=== PATIENT | male | born 1935 | race Caucasian/White ===

== ENCOUNTER 2016-09-17 08:59 | Emergency (ER) | payer OTHER ==
[2016-09-17] MEDS ORDERED: IPRATROPIUM/ALBUTEROL SULFATE 3 ML AMPUL.NEB NEB ONE (09:14)
[2016-09-17] MEDS: IPRATROPIUM/ALBUTEROL SULFATE 3 ML AMPUL.NEB NEB ONE (09:24)
[2016-09-17 09:28] LABS: ABG BASE EXCESS 2.8 (-2 - +2); ABG PH 7.44 (7.35-7.45)
[2016-09-17 09:32] LABS: BASOPHILS % 0.2 (0.0-1.5); EOSINOPHILS % 1.6 % (0.0-6.8); LYMPHOCYTES # 0.7 # k/uL (0.6-4.0); MEAN CORPUSCULAR HEMOGLOBIN 32.3 pg (28.0-34.0); MONOCYTES # 0.2 # k/uL (0.0-0.9); MONOCYTES % 3.5 % (0.0-11.0); NEUTROPHILS # 5.2 # k/uL (1.4-7.7)
[2016-09-17 09:47] LABS: eGFR (African) > 60; eGFR (Non-African) > 60
--- NOTE | 2016-09-17 10:01 | ED Physician Documentation ---
General Adult - HISTORIAN Historian: patient, spouse - HPI Stated Complaint: Shortness of breath Chief Complaint: General Adult Onset: days ago (1) Timing: still present Severity: moderate Further Comments: yes (Pt is a 80 yo lung cancer pt with sob that has been worsening since yesterday. No fever. No chest pain. Pt becomes acutely sob with minimal exertion. Pt indergoes weekly therapy at [facility] - ROS CONST: no problems EYES/ENT: none CVS/RESP: shortness of breath GI/: none MS/SKIN/LYMPH: none - PAST HX Past History: other (lung cancer, L lobe; hypothyroidism; HLD; COPD) Allergies/Adverse Reactions: Allergies Allergy/AdvReac Type Severity Reaction Status Date / Time No Known Allergies Allergy Verified 09/17/16 09:25 Home Medications: Ambulatory Orders Medication Instructions Recorded Atorvastatin Calcium [Lipitor] 80 mg PO HS 09/17/16 Levothyroxine Sodium [Synthroid] 75 mg PO DAILY 09/17/16 Oxycodone HCl [Oxycodone HCl] 10 mg PO Q6 PRN 09/17/16 - SOCIAL HX Smoking History: quit greater than 1 year - FAMILY HX Family History: No - VITAL SIGNS Vital Signs: Vital Signs Temp Pulse Resp BP Pulse Ox 98.1 F 64 28 H 169/75 69 L 09/17/16 09:15 09/17/16 09:15 09/17/16 09:15 09/17/16 09:15 09/17/16 09:15 - REVIEWED ASSESSMENTS Nursing Assessment Reviewed: Yes Vitals Reviewed: Yes Progress - Progress Progress: CXR: 1. Opacified left hemithorax. Differential includes pneumonectomy and complete lung collapse. 2. Mild right basilar reticular opacity may represent atelectasis, edema, or bronchitis. Duoneb HFN x 1 Pt is stable: HR 86; R 18; SpO2 92% nrb. Transfer to [facility] Rutherford. - EKG/XRAY/CT EKG: NSR (HR=70; OR interval normal; normal axis.) ED Results Lab/Radiology - Lab Results Lab Results: Lab Results 09/17/16 09/17/16 09/17/16 09:25 09:25 09:25 WBC 6.20 K/ul K/ul (4.00-12.00) RBC 3.00 M/ul L M/ul (3.90-5.20) Hgb 9.7 g/dL L g/dL (12.0-18.0) Hct 29.9 % L % (37.0-53.0) MCV 100.0 fl fl (80.0-100.0) MCH 32.3 pg pg (28.0-34.0) MCHC 32.3 g/dL g/dL (30.0-36.0) RDW 12.9 % % (11.3-14.3) Plt Count 280 K/mm3 K/mm3 (130-400) Neut % (Auto) 83.1 % H % (39.0-79.0) Lymph % (Auto) 10.6 % L % (16.0-50.0) Dodge % (Auto) 3.5 % % (0.0-11.0) Eos % (Auto) 1.6 % % (0.0-6.8) Baso % (Auto) 0.2 (0.0-1.5) Neut # 5.2 # k/uL # k/uL (1.4-7.7) Lymph # 0.7 # k/uL # k/uL (0.6-4.0) Dodge # 0.2 # k/uL # k/uL (0.0-0.9) Eos # 0.1 # k/uL # k/uL (0.0-0.6) Baso # 0.0 # k/uL # k/uL (0.0-0.5) Reactive Lymphs % 1.0 % % (0.0-5.0) Reactive Lymphs # 0.1 # k/uL # k/uL (0.0-0.8) pH pCO2 pO2 HCO3 ABG O2 Sat Calc/Riky ABG Base Excess Sodium 138 mmol/L mmol/L (136-145) Potassium 3.5 mmol/L mmol/L (3.5-5.0) Chloride 103 mmol/L mmol/L (98-110) Carbon Dioxide 28 mmol/L mmol/L (20-32) BUN 13 mg/dL mg/dL (10-26) Creatinine 0.7 mg/dL mg/dL (0.4-1.5) Estimated Creat Clear 61 Est GFR ( Amer) > 60 (60 - ) Est GFR (Non-Af Amer) > 60 (60 - ) Glucose 152 mg/dL H mg/dL (70-99) Calcium 9.3 mg/dL mg/dL (8.5-10.5) Total Bilirubin 0.4 mg/dL mg/dL (0.2-1.2) AST 21 U/L U/L (0-41) ALT 17 U/L U/L (0-45) Alkaline Phosphatase 85 U/L U/L (46-116) Creatine Kinase 55 U/L U/L (0-225) Troponin I < 0.03 ng/mL L ng/mL (0.03-0.06) NT-Pro-B Natriuret Pep 247.8 pg/mL pg/mL (15.0-450.0) Total Protein 7.4 g/dL g/dL (6.0-8.5) Albumin 4.3 g/dL g/dL (3.0-5.5) 09/17/16 09:20 WBC RBC Hgb Hct MCV MCH MCHC RDW Plt Count Neut % (Auto) Lymph % (Auto) Dodge % (Auto) Eos % (Auto) Baso % (Auto) Neut # Lymph # Dodge # Eos # Baso # Reactive Lymphs % Reactive Lymphs # pH 7.44 (7.35-7.45) pCO2 40 mmhg mmhg (35-45) pO2 55 mmhg L mmhg (80-100) HCO3 27.2 Meq/L H Meq/L (21-26) ABG O2 Sat Calc/Riky 89 % L % (93-100) ABG Base Excess 2.8 H (-2 - +2) Sodium Potassium Chloride Carbon Dioxide BUN Creatinine Estimated Creat Clear Est GFR ( Amer) Est GFR (Non-Af Amer) Glucose Calcium Total Bilirubin AST ALT Alkaline Phosphatase Creatine Kinase Troponin I NT-Pro-B Natriuret Pep Total Protein Albumin - Orders Orders: ED Orders Category Date Time Status Continuous EKG monitoring Q30M Care 09/17/16 09:16 Active Continuous Pulse Oximetry Q30M Care 09/17/16 09:16 Active CHEST 1 VIEW [RAD] Stat Exams 09/17/16 Ordered ARTERIAL BLOOD GAS Routine Lab 09/17/16 09:20 Completed ARTERIAL BLOOD GAS Stat Lab 09/17/16 Uncollected BNP [NT-proBNP] Stat Lab 09/17/16 09:25 Completed CBC/PLATELET/DIFF Routine Lab 09/17/16 09:25 Completed CMP Routine Lab 09/17/16 09:25 Completed CREATINE KINASE Routine Lab 09/17/16 09:25 Completed TROPONIN I (cTnI) Stat Lab 09/17/16 09:25 Completed Ipratropium/Albuterol Sulfate [Duoneb] Med 09/17/16 09:14 Discontinued 3 ml NEB .STK-MED ONE Ipratropium/Albuterol Sulfate [Duoneb] Med 09/17/16 09:15 Discontinued 3 ml NEB NOW ONE Oxygen Daily Oxygen 09/17/16 09:30 Ordered EKG WITH COMPARISON Stat Ther 09/17/16 09:16 Completed General Adult Physical Exam - PHYSICAL EXAM GENERAL APPEARANCE: moderate distress EENT: eye inspection normal, ENT inspection normal, pharynx normal NECK: normal inspection, supple RESPIRATORY: other (decreased breath sounds on L) CVS: reg rate & rhythm, heart sounds normal ABDOMEN: soft, no organomegaly, normal bowel sounds BACK: normal inspection, no CVA tenderness SKIN: warm/dry, normal color EXTREMITIES: non-tender, normal range of motion, no evidence of injury NEURO: oriented X3, motor nml, sensation nml Discharge Clincal Impression: Mild anemia, possible lung collapse, ? obstructing mass Dyspnea Qualifiers: Dyspnea type: shortness of breath Qualified Code(s): R06.02 - Shortness of breath Lung cancer Qualifiers: Laterality: left Lung location: unspecified part of lung Qualified Code(s): C34.92 - Malignant neoplasm of unspecified part of left bronchus or lung Referrals: Fernando Jha MD [Primary Care Provider] - Home Medications: Ambulatory Orders Atorvastatin Calcium [Lipitor] 80 mg PO HS 09/17/16 Levothyroxine Sodium [Synthroid] 75 mg PO DAILY 09/17/16 Oxycodone HCl [Oxycodone HCl] 10 mg PO Q6 PRN 09/17/16 Condition: Stable Disposition: 02 XFER SHT-TRM HOSP Decision to Admit: NO Decision Time: 10:42
[2016-09-17 11:11] VITALS: BP 137/67
--- NOTE | 2016-09-17 15:52 | Diagnostic Imaging Report ---
ANA BEAVERS [facility] [id number] [facility] [address] [address] Report Submission Date: Sep 17, 2016 9:49:28 AM COUNSELING DIRECTOR Patient Study Name: MARK DENNISON Date: Sep 17, 2016 9:27:42 AM COUNSELING DIRECTOR Modality Type: CR Gender: M Description: CHEST : 39 Institution: [facility] Physician: ANA BEAVERS Single view chest History: Shortness of breath Findings: The left hemithorax is completely opacified with leftward mediastinal shift. A right atrial vascular access catheter is observed. Mild reticular opacity is present at the right lung base. Atherosclerotic calcifications are observed. Impression: 1. Opacified left hemithorax. Differential includes pneumonectomy and complete lung collapse. 2. Mild right basilar reticular opacity may represent atelectasis, edema, or bronchitis. Electronically signed on Sep 17, 2016 9:49:28 AM COUNSELING DIRECTOR by: Josh VILLAGOMEZ
== END 2016-09-17 10:58 | disposition short-term general hospital (02) ==
LOC: ED 08:59
DX: C34.92 Malignant neoplasm of unspecified part of left bronchus or lung (principal); D64.81 Anemia due to antineoplastic chemotherapy
CPT/HCPCS: 36600; 71010; 80053; 82550; 82803; 83880; 84484; 85025; 99284; S1016